=== PATIENT | female | born 1965 | race Caucasian/White ===

== ENCOUNTER 2022-01-05 00:37 | Day surgery (SDC) | payer BC, SELFPAY ==
[2021-12-25 14:21] VITALS: BMI 30.4
[2022-01-05 08:23] VITALS: BP 135/92; PULSE 72; RESP 15; TEMP 36.3; O2SAT 99
--- NOTE | 2022-01-05 08:31 | P.PNAN_ITS ---
Anes - Initial Pre Proc Eval Procedure: Operation Date: 01/05/22 09:30 Proposed Procedures p Screening Colonoscopy - Alfie Vides MD Date/Time: 01/05/22 08:31 Surgeon: Alfie Vides MD Pre Op Diagnosis: neoplasm screening Patient Data Age: 56 Gender: F Height: 1.73 m Weight: 90.7 kg Last Vital Signs Temp 36.3 C L 01/05/22 08:23 Pulse 72 01/05/22 08:23 Resp 15 01/05/22 08:23 BP 135/92 H 01/05/22 08:23 Pulse Ox 99 01/05/22 08:23 O2 Del Method Room Air 01/05/22 08:23 Allergies Allergy/AdvReac Type Severity Reaction Status Date / Time No Known Allergies Allergy Verified 01/05/22 08:21 Home Medications Medication Instructions Recorded Confirmed Type alprazolam 0.5 mg tablet 0.5 mg PO DAILY 10/13/21 01/05/22 History armodafinil 150 mg tablet 150 mg PO QAM 10/13/21 01/05/22 History bupropion HCl 150 mg 24 hr tablet, 150 mg PO QAM 10/13/21 01/05/22 History extended release cetirizine 10 mg capsule (All Day 10 mg PO DAILY PRN Allergy Symptoms 10/13/21 01/05/22 History Allergy (cetirizine)) cyclosporine 0.05 % eye drops in a 1 drp EACH EYE Q12H 10/13/21 01/05/22 History dropperette (Restasis) escitalopram oxalate 20 mg tablet 20 mg PO DAILY 10/13/21 01/05/22 History melatonin 10 mg capsule 10 mg PO QHS 10/13/21 01/05/22 History prazosin 2 mg capsule 2 mg PO QHS 10/13/21 01/05/22 History Patient hx anesthesia problems: post op nausea/vomiting Family hx anesthesia problems: none Results Review: All pre-operative results and documents have been reviewed as part of the pre- operative evaluation. FORMERLY [facility], [facility] Past Medical History Medical History Anxiety Depression Hypertension Irritable bowel syndrome Migraines PTSD (post-traumatic stress disorder) Sleep apnea in adult Family History Family History Mother Breast cancer Social History Social History Smoking status: Never smoker Alcohol intake: current Drinks per week: 2 Alcohol use details: 3-4 a week Substance use: never Substance use type: does not use Living arrangements: with family Spiritual care concerns: No Anes - Eval Final PreProcedure Day of Procedure 01/05/22 08:31 Patient weight: overweight Heart: regular rate and rhythm Lungs: clear to auscultation Airway: Mallampati scale class II Neurological: alert and oriented Last oral intake: >/= 8 hours ASA classification: III Emergent: no Anesthetic plan: proceed Anesthesia type and monitoring: general GIVS and standard monitoring Results Review: All pre-operative results and documents have been reviewed as part of the pre- operative evaluation. Informed Consent: The patient's anesthetic plan and its attendant risks and benefits were discussed with the patient/family/POA. Questions were solicited and answers provided to the satisfaction of the patient/family/POA.
[2022-01-05] MEDS: LACTATED RINGERS 1,000 ML 150 ML IV CONT (08:33)
--- NOTE | 2022-01-05 09:40 | PM.HPGS ---
History of Present Illness History of Present Illness Consent: Risks, benefits, and alternatives have been discussed and questions answered. Patient agrees to proceed with procedure. Chief complaint: neoplasm screening Narrative: Mei Hunter is a 56 year old female here for first screening colonoscopy Review of Systems Constitutional: Constitutional: Denies headache(s) and Denies weakness Eyes: Eyes: Denies blurry vision ENT: Reports Normal hearing present, Denies headache(s) and Denies neck pain Cardiovascular: Cardiovascular: Denies chest pain and Denies dyspnea Respiratory: Respiratory: Denies dyspnea Gastrointestinal: Gastrointestinal: Reports no additional gastrointestinal complaints Genitourinary: Genitourinary: Denies dysuria Musculoskeletal: Musculoskeletal: Denies neck pain Integumentary/Breasts: Skin/Breast: Denies dry skin Neurologic: Reports Normal hearing present, Denies headache(s) and Denies weakness Psychiatric: Psychiatric: Denies anxiety Endocrine: Endocrine: Denies change in body appearance Hematologic/Lymphatic: Hematologic/Lymphatic: Denies easy bleeding Allergic/Immunologic: Allergic/Immunologic: Denies urticaria PMF Past Medical History Medical History (Updated 01/05/22 @ 09:40 by Alfie Vides MD) Anxiety Colon cancer screening Depression Hypertension Irritable bowel syndrome Migraines PTSD (post-traumatic stress disorder) Sleep apnea in adult Family History Family History Mother Breast cancer Social History Social History Smoking status: Never smoker Alcohol intake: current Drinks per week: 2 Alcohol use details: 3-4 a week Substance use: never Substance use type: does not use Living arrangements: with family Spiritual care concerns: No Meds Home Medications and Allergies Home Medications Medication Instructions Recorded Confirmed Type alprazolam 0.5 mg tablet 0.5 mg PO DAILY 10/13/21 01/05/22 History armodafinil 150 mg tablet 150 mg PO QAM 10/13/21 01/05/22 History bupropion HCl 150 mg 24 hr tablet, 150 mg PO QAM 10/13/21 01/05/22 History extended release cetirizine 10 mg capsule (All Day 10 mg PO DAILY PRN Allergy Symptoms 10/13/21 01/05/22 History Allergy (cetirizine)) cyclosporine 0.05 % eye drops in a 1 drp EACH EYE Q12H 10/13/21 01/05/22 History dropperette (Restasis) escitalopram oxalate 20 mg tablet 20 mg PO DAILY 10/13/21 01/05/22 History melatonin 10 mg capsule 10 mg PO QHS 10/13/21 01/05/22 History prazosin 2 mg capsule 2 mg PO QHS 10/13/21 01/05/22 History Allergies Allergy/AdvReac Type Severity Reaction Status Date / Time No Known Allergies Allergy Verified 01/05/22 08:21 Vital Signs Vital Signs - 24 hr 01/05/22 08:23 Temperature 97.4 F L Pulse Rate 72 Respiratory Rate 15 Blood Pressure 135/92 H Pulse Oximetry 99 Oxygen Delivery Room Air Exam Const: General: comfortable and no acute distress HENMT: Face/Nose/Sinus: Normal nares present Eyes: General: appearance normal, both eyes and all related structures Neck: Neck: no JVD Resp: Auscultation: clear to auscultation bilaterally Cardio: Rate: regular rate Rhythm: regular rhythm GI: Inspection: non-distended GI Palp: Yes Soft to palpation Skin: General skin exam: normal color Neuro: General: gait normal Speech: normal speech Extrem: General: normal to inspection Psych: Mental Status: mental status grossly normal Assessment and Plan Assessment and plan (1) Colon cancer screening: Code(s): Z12.11 - Encounter for screening for malignant neoplasm of colon Status: Acute Assessment and Plan: colonoscopy
[2022-01-05 10:07] VITALS: BP 132/89; PULSE 74; RESP 26; O2SAT 99
[2022-01-05 10:17] VITALS: BP 136/79; PULSE 63; RESP 14; O2SAT 99
[2022-01-05 10:27] VITALS: BP 133/88; PULSE 65; RESP 14; O2SAT 99
== END 2022-01-05 10:43 | disposition home or self-care (01) ==
PROVIDERS: PCP Internal Medicine; Visit Provider Internal Medicine Gastroenterology
PROC: 0DJD8ZZ Inspection of Lower Intestinal Tract, Via Natural or Artificial Opening Endoscopic (ICD-10-PCS; CPT 45378; principal; 2022-01-05 09:30)
DX: Z12.11 Encounter for screening for malignant neoplasm of colon (principal); D12.0 Benign neoplasm of cecum; D12.2 Benign neoplasm of ascending colon; I10 Essential (primary) hypertension; G47.30 Sleep apnea, unspecified; F43.10 Post-traumatic stress disorder, unspecified; F41.9 Anxiety disorder, unspecified; F32.A Depression, unspecified; K58.9 Irritable bowel syndrome, unspecified
CPT/HCPCS: 45385; 88305; J2704; J7120